=== PATIENT | female | born 1975 ===

== ENCOUNTER 2017-08-15 09:31 | Emergency (ER) | payer MEDICAID ==
[2017-08-15 10:10] VITALS: BMI 28.7
[2017-08-15] MEDS ORDERED: Albuterol-Ipratrop 3 mg / 0.5 (3 ml) UD INH STA (10:15)
[2017-08-15] MEDS ORDERED: guaiFENesin 100 mg/5 ml Syrup UD PO STA (10:15)
--- NOTE | 2017-08-15 11:31 | RAD ---
HISTORY: COMPARISON: 09/01/2010 TECHNIQUE: Chest PA and lateral FINDINGS: LINES AND TUBES: None. LUNG AND PLEURA: The lungs are well inflated and clear. HEART AND MEDIASTINUM: The heart is not enlarged. The hilar and mediastinal contours are within normal limits. SKELETAL STRUCTURES: The bony structures are within normal limits for the patient's age. VISUALIZED UPPER ABDOMEN: Normal. OTHER FINDINGS: None. IMPRESSION: No active pulmonary disease.
--- NOTE | 2017-08-15 12:14 | ED PDOC ---
HPI: CCC, URI, Sore Throat Time Seen by Provider: 08/15/17 10:10 Chief Complaint (Nursing): Cough, Cold, Congestion Chief Complaint (Provider): Cough History Per: Patient History/Exam Limitations: no limitations Onset/Duration Of Symptoms: Days (x10) Current Symptoms Are (Timing): Still Present Additional Complaint(s): Araceli Patton is a 42 year old female with a past surgical history of a tonsillectomy presenting to the ED for an evaluation of a cough occurring for 10 days prior to arrival. The patient states she visited her PMD who prescribed her Azithromycin, which the patient completed yesterday. She denies shortness of breath, fever, chest pain, back pain, hemoptysis, or smoking exposure. PMD: Jet Peterson MD Past Medical History Reviewed: Historical Data, Nursing Documentation, Vital Signs - Medical History PMH: No Chronic Diseases - Surgical History Surgical History: Tonsillectomy - Family History Family History: States: Unknown Family Hx - Social History Current smoker - smoking cessation education provided: No Ex-Smoker (has not smoked in the last 12 months): No Alcohol: None Drugs: Denies - Home Medications Home Medications: Ambulatory Orders Medication Instructions Recorded Albuterol HFA [Ventolin HFA 90 1 - 2 puff IH Q4 PRN #1 inhaler 08/15/17 mcg/actuation (8 g)] Prednisone 50 mg PO DAILY #4 tab 08/15/17 Promethazine/Codeine 5 ml PO TID PRN #50 ml 08/15/17 [Codeine/Promethazine 10 MG/5 Ml-6.25 MG/5 Ml] - Allergies Allergies/Adverse Reactions: Allergies Allergy/AdvReac Type Severity Reaction Status Date / Time pineapple Allergy ANAPHYLAXIS Verified 08/15/17 10:10 peanuts Allergy ANAPHYLAXIS Uncoded 08/15/17 10:10 Review of Systems ROS Statement: Except As Marked, All Systems Reviewed And Found Negative Constitutional: Negative for: Fever ENT: Positive for: Throat Pain (associated sore throat ) Respiratory: Positive for: Cough. Negative for: Shortness of Breath, Hemoptysis Musculoskeletal: Negative for: Back Pain Physical Exam - Reviewed Nursing Documentation Reviewed: Yes Vital Signs Reviewed: Yes - Physical Exam Head Exam: Positive for: ATRAUMATIC, NORMOCEPHALIC Skin: Positive for: Normal Color, Warm, Dry Eye Exam: Positive for: Normal appearance ENT: Positive for: Normal ENT Inspection Neck: Positive for: Normal Cardiovascular/Chest: Positive for: Regular Rate, Rhythm, Chest Non Tender Respiratory: Positive for: Wheezing (faint wheezing at bases ) Extremity: Positive for: Normal ROM Neurologic/Psych: Positive for: Alert, Oriented Medical Decision Making Medical Decision Making: Time: 10:10 Impression: Cough Plan: * Duoneb 3 mg/0.5 mg (3ml) UD 3 ml INH * Robitussin 100 mg PO * [RAD] Chest Two views PA/LAT * Reevaluation Pt remains stable over the course of her ER visit. Will discharge pt with Ventolin, Prednisone, and Promethazine for 4 days. Scribe Attestation: Documented by Scarlet Allred, acting as a scribe for Kyler Durbin DO. Provider Scribe Attestation: All medical record entries made by the Scribe were at my direction and personally dictated by me. I have reviewed the chart and agree that the record accurately reflects my personal performance of the history, physical exam, medical decision making, and the department course for this patient. I have also personally directed, reviewed, and agree with the discharge instructions and disposition. Disposition - Clinical Impression Clinical Impression: Cough - Disposition Referrals: Garrison Marley MD [Staff Provider] - Ralph Mo MD [Staff Provider] - Disposition Time: 12:05 Condition: STABLE Additional Instructions: See lung doctor in 1 week if symptoms persist. Take medications as directed. Return to ER for any new or worse symptoms. Prescriptions: Albuterol HFA [Ventolin HFA 90 mcg/actuation (8 g)] 1 - 2 puff IH Q4 PRN #1 inhaler PRN Reason: Shortness Of Breath Prednisone 50 mg PO DAILY #4 tab Promethazine/Codeine [Codeine/Promethazine 10 MG/5 Ml-6.25 MG/5 Ml] 5 ml PO TID PRN #50 ml PRN Reason: Cough Instructions: Acute Cough (ED) Forms: [employer] (Sammarinese) Print Language: MOROCCAN
== END 2017-08-15 12:17 | disposition home or self-care (01) ==
LOC: H.ER 09:31
DX: R05 Cough (principal)

== ENCOUNTER 2019-02-01 08:53 | Emergency (ER) | payer MEDICAID ==
[2019-02-01 08:58] VITALS: RESP 18
[2019-02-01 08:59] VITALS: BMI 28.9
--- NOTE | 2019-02-01 09:33 | ED PDOC ---
HPI: General Adult Time Seen by Provider: 02/01/19 09:15 Chief Complaint (Nursing): Abdominal Pain Chief Complaint (Provider): LUQ abdominal pain, left back pain History Per: Patient History/Exam Limitations: no limitations Additional Complaint(s): 43yo female, otherwise well, comes to ER reporting left upper quadrant/left lower rib pain, present for the past 2 weeks and intermittently radiating to her left back. Patient also reports for the past 2 days, she has had trouble urinating but denies any dysuria or hematuria. She denies any fever, chills, chest pain, shortness of breath, or other complaints. PMD: Breanne Anderson Past Medical History Reviewed: Historical Data, Nursing Documentation, Vital Signs Vital Signs: Last Vital Signs Temp 98.1 F 02/01/19 08:58 Pulse 75 02/01/19 08:58 Resp 18 02/01/19 08:58 BP 128/86 02/01/19 08:58 Pulse Ox 99 02/01/19 08:58 - Medical History PMH: No Chronic Diseases Denies: Chronic Kidney Disease - Surgical History Surgical History: Tonsillectomy Other surgeries: hysterectomy - Family History Family History: States: No Known Family Hx - Social History Current smoker - smoking cessation education provided: No Alcohol: Occasional Drugs: Denies - Home Medications Home Medications: Ambulatory Orders Medication Instructions Recorded Omeprazole Magnesium [Prilosec Otc] 1 tab PO DAILY 06/06/18 Lidocaine 5% [Lidoderm] 1 patch TOP DAILY #10 patch 06/21/18 Naproxen 500 mg PO BID PRN #20 tablet 06/21/18 Nitrofurantoin Macrocrystals 100 mg PO BID #14 cap 02/01/19 [Macrobid] - Allergies Allergies/Adverse Reactions: Allergies Allergy/AdvReac Type Severity Reaction Status Date / Time cheese Allergy VOMITING Verified 06/06/18 21:07 pineapple Allergy ANAPHYLAXIS Verified 06/06/18 21:07 peanuts Allergy ANAPHYLAXIS Uncoded 06/06/18 21:07 Review of Systems ROS Statement: Except As Marked, All Systems Reviewed And Found Negative Constitutional: Negative for: Fever, Chills Cardiovascular: Negative for: Chest Pain Respiratory: Negative for: Shortness of Breath Gastrointestinal: Positive for: Abdominal Pain Genitourinary Female: Negative for: Dysuria, Frequency, Hematuria Musculoskeletal: Positive for: Back Pain (intermittent left back pain) Neurological: Negative for: Weakness, Numbness Physical Exam - Reviewed Nursing Documentation Reviewed: Yes Vital Signs Reviewed: Yes - Physical Exam Appears: Positive for: Non-toxic, No Acute Distress Head Exam: Positive for: ATRAUMATIC, NORMAL INSPECTION, NORMOCEPHALIC Skin: Positive for: Normal Color, Warm, DRY Eye Exam: Positive for: EOMI, Normal appearance, PERRL ENT: Positive for: Normal ENT Inspection Neck: Positive for: Normal, Painless ROM, Supple Cardiovascular/Chest: Positive for: Regular Rate, Rhythm Respiratory: Positive for: Normal Breath Sounds Gastrointestinal/Abdominal: Positive for: Normal Exam, Soft. Negative for: Tenderness, Guarding, Rebound Back: Positive for: Other (mild tenderness left mid-back). Negative for: L CVA Tenderness, R CVA Tenderness, Vertebral Tenderness Extremity: Positive for: Normal ROM. Negative for: Deformity Neurological/Psych: Positive for: Awake, Alert, Normal Tone, Oriented (x 3) - Laboratory Results Result Diagrams: 02/01/19 09:37 02/01/19 09:37 - ECG O2 Sat by Pulse Oximetry: 99 (RA) Pulse Ox Interpretation: Normal Medical Decision Making Medical Decision Making: Impression: LEft upper abdominal pain, left back pain Differential: Pancreatitis, kidney stone, UTI, less likely penumonia, PE Plan: -- Labs -- Urinalysis -- CXR -- CT Abdomen/Pelvis w/o contrast 0951 Urinalysis reviewed, no clinically significant abnormalities. 1133 CT Abdomen/PElvis FINDINGS: LOWER THORAX: The visualized lungs are clear. LIVER: Normal in size. No gross lesion or ductal dilatation. GALLBLADDER AND BILE DUCTS: Well distended. No calcified gallstones. No common bile duct dilatation. PANCREAS: Normal in size. No gross lesion or ductal dilatation. SPLEEN: Normal in size. ADRENALS: Normal in size. No discrete nodule. KIDNEYS AND URETERS: Both kidneys are normal in size. No hydronephrosis or nephrolithiasis. VASCULATURE: Normal in caliber. No aortic aneurysm. No aortic atherosclerotic calcification or mural plaque present. BOWEL: Evaluation of the bowel is limited in the absence of oral contrast. Mildly dilated proximal small bowel loops with fecalization of small bowel contents. The mid and distal small bowel loops are fluid-filled and normal in caliber. Moderate amount of stool scattered throughout the colon. There is colonic diverticulosis without CT evidence for acute diverticulitis. APPENDIX: Normal appendix. PERITONEUM: No free fluid. No free air. LYMPH NODES: No enlarged lymph nodes. BLADDER: Well distended and normal in appearance. REPRODUCTIVE: The is is normal in size. BONES: No acute fracture. Within normal limits for the patient's age. OTHER FINDINGS: There is a small sliding hiatal hernia. IMPRESSION: Mildly dilated proximal small bowel loops with fecalization of small bowel contents most compatible with chronic stasis. No evidence for bowel obstruction. Colonic diverticulosis without CT evidence for acute diverticulitis. CXR FINDINGS: LUNGS: No active pulmonary disease. PLEURA: No significant pleural effusion identified. No pneumothorax apparent. CARDIOVASCULAR: No aortic atherosclerotic calcification present. Normal cardiac size. No pulmonary vascular congestion. OSSEOUS STRUCTURES: No significant abnormalities. VISUALIZED UPPER ABDOMEN: Normal. OTHER FINDINGS: None. IMPRESSION: No active disease. No significant interval change compared to the prior examination(s). 1214 Labs reviewed, no clinically significant abnormalities. Patient informed of CXR and CT results; she reports feeling much better. Stable for discharge home; informed to follow up with PMD in 2-3 days. Scribe Attestation: Documented by Radha Javed, acting as a scribe for Malick Ortiz MD. Provider Scribe Attestation: All medical record entries made by the Scribe were at my direction and p ersonally dictated by me. I have reviewed the chart and agree that the record accurately reflects my personal performance of the history, physical exam, medical decision making, and the department course for this patient. I have also personally directed, reviewed, and agree with the discharge instructions and disposition. Disposition - Clinical Impression Clinical Impression: Abdominal pain in female, Rib pain on left side, Constipation - Patient ED Disposition Is Patient to be Admitted: No Doctor Will See Patient In The: Office Counseled Patient/Family Regarding: Studies Performed, Diagnosis, Need For Followup - Disposition Disposition: Routine/Home Disposition Time: 12:15 Condition: GOOD Prescriptions: Nitrofurantoin Macrocrystals [Macrobid] 100 mg PO BID #14 cap Instructions: Constipation in Adults, Chest Pain That Is Not Caused by the Heart (DC), Dysuria, Adult (DC) Forms: [employer] (S[place] Leonean) Print Language: NIGERIAN
[2019-02-01 09:41] LABS: SQUAMOUS EPITHIAL 1 /hpf (0-5); URINE BILIRUBIN NEGATIVE (NEGATIVE); URINE BLOOD NEGATIVE (NEGATIVE); URINE CLARITY SLIGHTY-CLOUDY (Clear); URINE COLOR YELLOW (YELLOW); URINE GLUCOSE (UA) NEG (NEGATIVE); URINE LEUKOCYTE ESTERASE NEG Leu/uL (Negative); URINE PROTEIN NEGATIVE (NEGATIVE); URINE UROBILINOGEN 0.2-1.0 mg/dL (0.2-1.0)
[2019-02-01 09:51] LABS: BASO % 0.6 % (0.0-2.0); EOS # 0.9 K/uL (0.0-0.7); EOS % 13.4 % (0.0-4.0); HEMOGLOBIN 12.7 g/dL (12.0-16.0); LYMPH # 2.2 K/uL (1.0-4.3); LYMPH % 33.3 % (20.0-40.0); MEAN CELL VOLUME 90.5 fl (81.0-99.0); MEAN CORPUSCULAR HEMOGLOBIN 30.7 pg (27.0-31.0); MEAN CORPUSCULAR HGB CONC 33.9 g/dL (33.0-37.0); MEAN PLATELET VOLUME 9.6 fl (7.2-11.7); MONO # 0.5 K/uL (0.0-0.8); MONO % 8.2 % (0.0-10.0); NEUT # 2.9 K/uL (1.8-7.0); NEUT % 44.5 % (50.0-75.0); NRBC % 0.2 % (0.0-0.0); RBC 4.15 Mil/uL (3.80-5.20); RED CELL DISTRIBUTION WIDTH 13.7 % (11.5-14.5); WHITE BLOOD COUNT 6.5 K/uL (4.8-10.8)
[2019-02-01 10:01] LABS: ALB/GLOB RATIO 1.4 (1.0-2.1); ALBUMIN 4.3 g/dL (3.5-5.0); ALT/SGPT 31 U/L (9-52); AST/SGOT 26 U/L (14-36); BLOOD UREA NITROGEN 14 mg/dl (7-17); CALCIUM 9.3 mg/dL (8.4-10.2); GFR NON-AFRICAN AMERICAN > 60; LIPASE 233 U/L (23-300)
--- NOTE | 2019-02-01 11:11 | RAD ---
Date of service: 02/01/2019 HISTORY: left rib pauin COMPARISON: 08/15/2017 TECHNIQUE: Chest PA and lateral FINDINGS: LUNGS: No active pulmonary disease. PLEURA: No significant pleural effusion identified. No pneumothorax apparent. CARDIOVASCULAR: No aortic atherosclerotic calcification present. Normal cardiac size. No pulmonary vascular congestion. OSSEOUS STRUCTURES: No significant abnormalities. VISUALIZED UPPER ABDOMEN: Normal. OTHER FINDINGS: None. IMPRESSION: No active disease. No significant interval change compared to the prior examination(s).
--- NOTE | 2019-02-01 11:23 | CT ---
Date of service: 02/01/2019 PROCEDURE: CT Abdomen and Pelvis without intravenous contrast HISTORY: Left upper quadrant pain COMPARISON: None. TECHNIQUE: CT scan of the abdomen and pelvis was performed without administration of intravenous contrast. Oral contrast was not administered. Coronal and sagittal reformatted images were obtained. Radiation dose: Total exam DLP = 578.52 mGy-cm. This CT exam was performed using one or more of the following dose reduction techniques: Automated exposure control, adjustment of the mA and/or kV according to patient size, and/or use of iterative reconstruction technique. FINDINGS: LOWER THORAX: The visualized lungs are clear. LIVER: Normal in size. No gross lesion or ductal dilatation. GALLBLADDER AND BILE DUCTS: Well distended. No calcified gallstones. No common bile duct dilatation. PANCREAS: Normal in size. No gross lesion or ductal dilatation. SPLEEN: Normal in size. ADRENALS: Normal in size. No discrete nodule. KIDNEYS AND URETERS: Both kidneys are normal in size. No hydronephrosis or nephrolithiasis. VASCULATURE: Normal in caliber. No aortic aneurysm. No aortic atherosclerotic calcification or mural plaque present. BOWEL: Evaluation of the bowel is limited in the absence of oral contrast. Mildly dilated proximal small bowel loops with fecalization of small bowel contents. The mid and distal small bowel loops are fluid-filled and normal in caliber. Moderate amount of stool scattered throughout the colon. There is colonic diverticulosis without CT evidence for acute diverticulitis. APPENDIX: Normal appendix. PERITONEUM: No free fluid. No free air. LYMPH NODES: No enlarged lymph nodes. BLADDER: Well distended and normal in appearance. REPRODUCTIVE: The is is normal in size. BONES: No acute fracture. Within normal limits for the patient's age. OTHER FINDINGS: There is a small sliding hiatal hernia. IMPRESSION: Mildly dilated proximal small bowel loops with fecalization of small bowel contents most compatible with chronic stasis. No evidence for bowel obstruction. Colonic diverticulosis without CT evidence for acute diverticulitis.
[2019-02-01 12:23] VITALS: BP 152/89; PULSE 72; TEMP 98.6
--- NOTE | 2019-02-01 17:15 | CARD ---
APPROVED REPORT Date of service: 02/01/2019 EKG Measurement Heart [id number] <Conclusion> Normal sinus rhythm Possible Left atrial enlargement Borderline ECG
[2019-02-04 17:03] VITALS: O2SAT 99
== END 2019-02-01 12:25 | disposition home or self-care (01) ==
LOC: H.ER 08:53
DX: R10.12 Left upper quadrant pain (principal); R07.81 Pleurodynia; K59.00 Constipation, unspecified; K44.9 Diaphragmatic hernia without obstruction or gangrene; K57.30 Diverticulosis of large intestine without perforation or abscess without bleeding; Z90.710 Acquired absence of both cervix and uterus